=== PATIENT | male | born 1980 | race Caucasian/White ===

== ENCOUNTER 2017-08-12 15:45 | Emergency (ER) | END 2017-08-12 19:29 | disposition home or self-care (01) ==

== ENCOUNTER 2017-08-18 17:30 | Emergency (ER) | END 2017-08-18 20:28 | disposition home or self-care (01) ==

== ENCOUNTER 2017-08-21 18:56 | Emergency (ER) | END 2017-08-22 01:15 | disposition left against medical advice (07) ==

== ENCOUNTER 2017-08-23 01:15 | Inpatient (IN) | END 2017-08-23 17:10 | disposition home or self-care (01) | DRG 440 ==

== ENCOUNTER 2017-10-03 13:35 | Emergency (ER) | END 2017-10-03 16:09 | disposition home or self-care (01) ==

== ENCOUNTER 2017-11-03 12:03 | Emergency (ER) | END 2017-11-03 16:40 | disposition home or self-care (01) ==

== ENCOUNTER 2017-12-02 18:20 | Emergency (ER) | END 2017-12-02 20:26 | disposition left against medical advice (07) ==

== ENCOUNTER 2017-12-03 14:16 | Emergency (ER) | END 2017-12-03 18:00 | disposition home or self-care (01) ==

== ENCOUNTER 2018-02-06 13:59 | Emergency (ER) | END 2018-02-06 16:03 | disposition home or self-care (01) ==

== ENCOUNTER 2018-02-25 07:04 | Emergency (ER) | END 2018-02-25 08:40 | disposition home or self-care (01) ==

== ENCOUNTER 2018-04-14 16:35 | Emergency (ER) | END 2018-04-14 19:44 | disposition home or self-care (01) ==

== ENCOUNTER 2018-06-22 14:47 | Emergency (ER) | payer BC ==
[~2018-06-22] VITALS: Ht 172.7 cm; Wt 87.9 kg
[~2018-06-22 14:47] MED LIST: ATOR40TA68 PO; ESOM20CA PO; HYDR-3980 PO; HYDR-4011 PO; HYDR2TAB3 PO; LABE100T7 PO; METO10TA92 PO; ONDA4TAB8 PO; ONDA8TAB14 PO; [UNRECOGNIZED DRUG - OTHER] SC
[2018-06-22 14:52] VITALS: Ht 172.7 cm; Wt 87.9 kg
[2018-06-22] MEDS ORDERED: ONDANSETRON 4 MG INJ IV STA (16:45)
[2018-06-22] MEDS ORDERED: morphine 4 MG/ML VIAL IV STA (16:45)
[2018-06-22] MEDS ORDERED: SOD CHLORIDE 0.9% 1,000 ML IV ONE (17:00)
[2018-06-22] MEDS ORDERED: ONDA4TAB14 PO (18:32)
--- NOTE | 2018-06-22 18:37 | ERD ---
ER Documentation Chief Complaint Chief Complaint Complains of vomiting x 3 days HPI 38-year-old male patient with a past medical history of type 2 diabetes, hyperlipidemia presents the ED stating that he has left upper quadrant abdominal pain. Reports that he is here to make sure that his pancreas is okay. States that he has an appointment to apply a stent next Friday on June 29, 2018. Denies any fever, chills, chest pain, shortness of breath, diarrhea, constipation, dysuria, scrotal pain. ROS All systems reviewed and are negative except as per history of present illness. Medications Home Meds Active Scripts Ondansetron (Ondansetron Odt) 4 Mg Tab.rapdis, 4 MG PO Q6H PRN for NAUSEA AND/OR VOMITING, #10 TAB Prov:JONAH SMITH PA-C 06/22/18 Ondansetron Hcl* (Zofran*) 4 Mg Tablet, 4 MG PO Q6H for NAUSEA AND/OR VOMITING, #30 TAB Prov:INGE REYNOSO 02/06/18 Hydrocodone/Acetaminophen ([place] 5-325 Tablet) 1 Each Tablet, 1 TAB PO Q6H PRN for PAIN, #7 TAB Prov:INGE REYNOSO 02/06/18 Hydrocodone/Acetaminophen ([place] 5-325 Tablet) 1 Each Tablet, 1 TAB PO Q6H PRN for PAIN, #7 TAB Prov:SOFIE MATSON MD 12/03/17 Hydrocodone/Acetaminophen ([place] 10-325 Tablet) 1 Each Tablet, 1 TAB PO Q6H PRN for PAIN, #14 TAB Prov:MAI SCHWARTZ MD 10/03/17 Ondansetron (Ondansetron Odt) 8 Mg Tab.rapdis, 8 MG PO Q6H PRN for NAUSEA AND/OR VOMITING, #10 TAB Prov:MAI SCHWARTZ MD 10/03/17 Metoclopramide* (Reglan*) 10 Mg Tablet, 10 MG PO Q6 PRN for NAUSEA AND/OR VOMITING, #30 TAB Prov:FANNY DE LA CRUZ 08/18/17 Ondansetron Hcl* (Zofran*) 4 Mg Tablet, 4 MG PO Q6H for NAUSEA AND/OR VOMITING, #30 TAB Prov:INGE REYNOSO 08/12/17 Reported Medications [tejeuo] No Conflict Check, 12 SC 08/23/17 Esomeprazole Mag Trihydrate (Nexium) 20 Mg Capsule.dr, 20 MG PO DAILY, #30 CAP 08/23/17 Hydromorphone Hcl* (Hydromorphone Hcl*) 2 Mg Tablet, 2 MG PO Q4H PRN for PAIN, TAB 08/23/17 Atorvastatin* (Atorvastatin*) 40 Mg Tablet, 40 MG PO QHS, #30 TAB 08/23/17 Labetalol Hcl* (Labetalol Hcl*) 100 Mg Tablet, 100 MG PO TID, TAB 08/23/17 Allergies Allergies: Coded Allergies: MELISA Inhibitors (Verified Allergy, Unknown, 02/25/18) PMhx/Soc History of Surgery: Yes (stents to cardiac and pancreas) Anesthesia Reaction: No Hx Neurological Disorder: No Hx Respiratory Disorders: No Hx Cardiac Disorders: Yes (htn,hypercholesterol) Hx Psychiatric Problems: No Hx Miscellaneous Medical Probl: Yes (dm) Hx Alcohol Use: No Hx Substance Use: No Hx Tobacco Use: No Smoking Status: Never smoker FmHx Family History: No diabetes, No coronary disease Physical Exam Vitals Vital Signs Date Temp Pulse Resp B/P (MAP) Pulse Ox O2 O2 Flow FiO2 Time Delivery Rate 06/22/18 98.5 81 16 150/88 96 Room Air 18:53 (108) 06/22/18 98.6 102 20 151/103 97 14:52 (119) Physical Exam Const: Tcy-ryr-[id number], well-nourished. In no acute distress. Head: Atraumatic, normocephalic Eyes: Normal Conjunctiva without injection. No purulent discharge. ENT: Normal external ear, nose. Moist oropharynx without tonsillar exudates. Non-erythematous pharynx. Uvula midline. No drooling. No trismus. Neck: No cervical midline tenderness. Full range of motion. No meningismus. No cervical lymphadenopathy. No JVD. Resp: Clear to auscultation bilaterally. No wheezing, rhonchi, rales, or crackles. No accessory muscle use. No retractions. Cardio: Regular rate and rhythm. No murmurs, rubs or gallops. Abd: Soft, nontender, non distended. Normal bowel sounds. No palpable masses. No rebound tenderness. No guarding. Negative McBurney's point. Negative psoas sign. Negative obturator sign. Skin: No petechiae or rashes Back: No midline tenderness. No CVA tenderness. Ext: No cyanosis, or edema. Neur: Awake and alert. Normal gait. Normal coordination. Psych: Normal Mood and Affect Result Diagram: 06/22/18 1659 06/22/18 1659 Results 24 hrs Laboratory Tests Test 06/22/18 16:59 White Blood Count 3.9 10^3/ul Red Blood Count 4.84 10^6/ul Hemoglobin 13.5 g/dl Hematocrit 41.5 % Mean Corpuscular Volume 85.7 fl Mean Corpuscular Hemoglobin 27.9 pg Mean Corpuscular Hemoglobin Concent 32.5 g/dl Red Cell Distribution Width 13.2 % Platelet Count 221 10^3/UL Mean Platelet Volume 11.7 fl Immature Granulocytes % 0.300 % Neutrophils % 47.6 % Lymphocytes % 36.6 % Monocytes % 13.0 % Eosinophils % 2.0 % Basophils % 0.5 % Nucleated Red Blood Cells % 0.0 /100WBC Immature Granulocytes # 0.010 10^3/ul Neutrophils # 1.9 10^3/ul Lymphocytes # 1.4 10^3/ul Monocytes # 0.5 10^3/ul Eosinophils # 0.1 10^3/ul Basophils # 0.0 10^3/ul Nucleated Red Blood Cells # 0.0 10^3/ul Sodium Level 139 mmol/L Potassium Level 3.5 mmol/L Chloride Level 98 mmol/L Carbon Dioxide Level 32 mmol/L Anion Gap 9 Blood Urea Nitrogen 11 mg/dl Creatinine 1.21 mg/dl Est Glomerular Filtrat Rate mL/min > 60 mL/min Glucose Level 157 mg/dl Calcium Level 9.3 mg/dl Total Bilirubin 0.5 mg/dl Direct Bilirubin 0.00 mg/dl Indirect Bilirubin 0.5 mg/dl Aspartate Amino Transf (AST/SGOT) 39 IU/L Alanine Aminotransferase (ALT/SGPT) 30 IU/L Alkaline Phosphatase 73 IU/L Total Protein 7.7 g/dl Albumin 4.5 g/dl Globulin 3.20 g/dl Albumin/Globulin Ratio 1.40 Lipase 208 U/L Current Medications Medications Dose Sig/Sandrine Start Time Status Last (Trade) Ordered Route PRN Stop Time Admin Dose Reason Admin Morphine 4 mg ONCE STAT 06/22/18 DC 06/22/18 Sulfate IV 16:45 06/22/18 17:03 (morphine) 16:48 Ondansetron 4 mg ONCE STAT 06/22/18 DC 06/22/18 HCl (Zofran IV 16:45 06/22/18 17:03 Inj) 16:48 Sodium 1,000 ml @ Q1H ONCE 06/22/18 DC 06/22/18 Chloride 1,000 mls/hr IV 17:00 06/22/18 17:03 17:59 Procedures/MDM 38-year-old male patient with a past medical history of hyperlipidemia, diabetes type 2, hypertension presents to ED complaining of vomiting that started 3 days ago. Patient is afebrile and nontoxic-appearing. Patient's blood pressure is 150/88. Blood Pressure Assessment: Patient's blood pressure was elevated (>120/80) but appears stable without evidence of hypertension emergency or urgency. The patient was counseled about the risks of hypertension and urged to pursue outpatient monitoring and therapy within a week with their primary care physician. Patient was further worked up with CBC, CMP, lipase. Patient's pain and symptoms have improved after treatment with 1 L normal saline, 4 mg IV Zofran, 4 mg IV morphine. CBC: No leukocytosis. No e/o of systemic infection. No e/o anemia. CMP: No e/o severe acidosis, alkalosis, renal failure, diabetic ketoacidosis, liver disease Lipase within normal limits. Urine: No leukocyte esterase, no nitrites, no hematuria. Patient has an appointment to see his environmental health and safety leader/general surgeon to apply stent on June 29, 2018. Patient reports that he feels comfortable with pain management at home with his hydromorphone. Low suspicion for testicular torsion, gastritis, GERD, peptic ulcer disease, cholecystitis, choledocholithiasis, cholangitis, pancreatitis, appendicitis, bowel obstruction, ileus, volvulus, nephrolithiasis, pyelonephritis, hepatitis, perforated viscus, diverticulitis, abdominal hernia, acute abdomen, mesenteric ischemia or other emergent conditions. Discharge medications: Zofran Follow up with primary care physician in 1-2 days for referral to gastroen terologist. Instructed patient to return to the ED sooner for any worsening symptoms. Patient's questions were answered. Patient understood and agreed with discharge plan. Patient discharged stable. Departure Diagnosis: Primary Impression: Abdominal pain Abdominal location: unspecified location Qualified Codes: R10.9 - Unspecified abdominal pain Condition: Stable Patient Instructions: Abdominal Pain, Lipase Referrals: [facility] YOU HAVE RECEIVED A MEDICAL SCREENING EXAM AND THE RESULTS INDICATE THAT YOU DO NOT HAVE A CONDITION THAT REQUIRES URGENT TREATMENT IN THE EMERGENCY DEPARTMENT. FURTHER EVALUATION AND TREATMENT OF YOUR CONDITION CAN WAIT UNTIL YOU ARE SEEN IN YOUR DOCTORS OFFICE WITHIN THE NEXT 1-2 DAYS. IT IS YOUR RESPONSIBILITY TO MAKE AN APPOINTMENT FOR FOLOW-UP CARE. IF YOU HAVE A PRIMARY DOCTOR --you should call your primary doctor and schedule an appointment IF YOU DO NOT HAVE A PRIMARY DOCTOR YOU CAN CALL OUR PHYSICIAN REFERRAL HOTLINE AT IF YOU CAN NOT AFFORD TO SEE A PHYSICIAN YOU CAN CHOSE FROM THE FOLLOWING [facility] [address] [facility]. [facility] [address] [facility] [address] [facility] [address] [facility] [facility] [address] [facility]. [facility] [address] [facility]. [facility] YOU HAVE RECEIVED A MEDICAL SCREENING EXAM AND THE RESULTS INDICATE THAT YOU DO NOT HAVE A CONDITION THAT REQUIRES URGENT TREATMENT IN THE EMERGENCY DEPARTMENT. FURTHER EVALUATION AND TREATMENT OF YOUR CONDITION CAN WAIT UNTIL YOU ARE SEEN IN YOUR DOCTORS OFFICE WITHIN THE NEXT 1-2 DAYS. IT IS YOUR RESPONSIBILITY TO MAKE AN APPOINTMENT FOR FOLOW-UP CARE. IF YOU HAVE A PRIMARY DOCTOR --you should call your primary doctor and schedule and appointment IF YOU DO NOT HAVE A PRIMARY DOCTOR YOU CAN CALL OUR PHYSICIAN REFERRAL HOTLINE AT . IF YOU CAN NOT AFFORD TO SEE A PHYSICIAN YOU CAN CHOSE FROM THE FOLLOWING [facility] INSTITUTIONS: [facility] [address] [place] [address] [facility] [address] [place] [address] [facility] [address] [place] [address] [facility] URGENT CARE/SPECIALTIES Additional Instructions: Keep your appointment for 06/29/18 with environmental health and safety leader for stent to be placed and pancreas treatment. Return to the ED in 8-12 hours for a reexamination of the abdomen if symptoms do not improve. See the doctor sooner or return here if your condition worsens before your appointment time - fever, worsening vomiting, worsening abdominal pain not managed with pain medications at home, etc. JONAH SMITH PA-C Jun 22, 2018 18:37
[2018-06-22 18:53] VITALS: BP 150/88; PULSE 81; RESP 16
== END 2018-06-22 18:54 | disposition home or self-care (01) ==
LOC: FTE 14:47
DX: R10.12 Left upper quadrant pain (principal); E11.9 Type 2 diabetes mellitus without complications; I10 Essential (primary) hypertension; Z98.61 Coronary angioplasty status
CPT/HCPCS: 80053; 83690; 85025; J2270; J2405; J7030; 36415; 96361; 96374; 96375

== ENCOUNTER 2018-11-19 16:06 | Emergency (ER) | payer SELFPAY ==
[~2018-11-19] VITALS: Wt 89.0 kg
[~2018-11-19 16:06] MED LIST changes: +ONDA4TAB14 PO
[2018-11-19 16:18] VITALS: BP 152/89; PULSE 84; RESP 18
== END 2018-11-19 18:26 | disposition left against medical advice (07) ==
LOC: FTE 16:06
DX: Z53.21 Procedure and treatment not carried out due to patient leaving prior to being seen by health care provider (principal)

== ENCOUNTER 2019-01-12 11:11 | Emergency (ER) | payer BC ==
[~2019-01-12] VITALS: Ht 180.3 cm; Wt 84.3 kg
[~2019-01-12 11:11] MED LIST changes: +IBUP-1542 PO
[2019-01-12 11:20] VITALS: Ht 180.3 cm; Wt 84.3 kg
[2019-01-12] MEDS ORDERED: ONDANSETRON 4 MG INJ IV STA (13:54)
[2019-01-12] MEDS ORDERED: SOD CHLORIDE 0.9% 1,000 ML IV STA (13:54)
[2019-01-12] MEDS ORDERED: KETOROLAC 30 MG INJ IV STA (13:54)
[2019-01-12 14:59] VITALS: BP 120/75; PULSE 88; RESP 18
== END 2019-01-12 14:59 | disposition home or self-care (01) ==
LOC: FTE 11:11
DX: R10.13 Epigastric pain (principal); I10 Essential (primary) hypertension; E11.9 Type 2 diabetes mellitus without complications
CPT/HCPCS: 36415; 76705; 80053; 81001; 83690; 85025; 96374; 96375; 99285; J1885; J2405; J7030